=== PATIENT | female | born 1980 | race Caucasian/White ===

== ENCOUNTER 2016-02-27 15:41 | Outpatient (RCR) | payer BC ==
--- OUTSIDE RECORDS SUMMARY | 2015-12-12 11:28 | XMS REPORT | Continuity of Care Document ---
Author Author [facility] Organization [facility] Address Unknown Phone Unavailable Care Team Providers Care Technology Solutions Architect Name Role Phone SHARI CONRAD MD PCP Insurance Providers Payer Name Policy Number Subscriber Name Relationship [facility] [id number] Yury Balderas 19 Self / Same As Patient Advance Directives Directive Response Recorded Date/Time Advance Directives No 07/23/12 11:18pm Health Care Power of Floor Director No 07/23/12 11:18pm Organ Donor No 07/23/12 11:18pm Problems No known problems or medical conditions. Medications Medication Dose Route Sig Days/Qty Instructions Order Date Discontinued Date Status Metoprolol Succinate 25 Mg PO DAILY 12/03/09 07/12/12 Discontinued [Cher] 1 Tab PO DAILY 12/03/09 01/16/10 Discontinued [Aciphex] 12/03/09 12/21/09 Discontinued Ibuprofen 2 Tab PO EVERY 4HRS PRN 12/03/09 02/28/10 Discontinued Cefprozil 1 Each PO TWICE A DAY 20 Qty FOR INFECTION 12/04/09 12/26/09 Discontinued Azithromycin (Zpak) 2 Tab PO DAILY 10 Qty 12/04/09 12/26/09 Discontinued Propoxyphene HCl/Acetaminophen 1 Each PO Q6HR PRN 12/21/09 01/16/10 Discontinued Propylthiouracil 50 Mg PO BEDTIME 12/21/09 01/16/10 Discontinued Propylthiouracil 100 Mg PO TWICE A DAY 12/26/09 03/22/10 Discontinued Warfarin Sodium 6 Mg PO QOD ALTERNATE WITH 7 MG 12/26/09 07/12/12 Discontinued Tramadol HCl 50 Mg PO EVERY 6 HOURS PRN 12/26/09 01/16/10 Discontinued Aspirin 325 Mg PO DAILY 02/28/10 Active Alprazolam 0.125 Mg PO NEEDED 02/28/10 07/12/12 Discontinued Lorazepam 1 Each PO GIVE EVERY 6 HR ON SCHEDULE 10 Qty 02/28/10 Discontinued Ondansetron HCl 1 Tab PO EVERY 4HRS 10 Qty 02/28/10 03/01/10 Discontinued Warfarin Sodium 7 Mg PO EVERY OTHER DAY 02/28/10 07/12/12 Discontinued Prednisone 20 Mg PO DAILY 03/22/10 07/12/12 Discontinued Amlodipine Besylate (Norvasc 5 Mg) 5 Mg PO DAILY 03/22/10 07/12/12 Discontinued Pantoprazole Sodium 03/22/10 07/12/12 Discontinued Calcium Acetate 667 Mg PO THREE TIMES A DAY 03/22/10 07/12/12 Discontinued Ondansetron HCl 4 Mg PO EVERY 4HRS 5 Qty 03/23/10 07/12/12 Discontinued Levothyroxine Sodium 1 Each PO DAILY 07/12/12 Active Cholecalciferol (Vitamin D3) 2,000 Unit PO 07/12/12 Active Warfarin Sodium 10 Mg PO DAILY@1800 30 Qty 07/17/12 Active Alprazolam 1 Each PO BEDTIME 07/23/12 Active Social History Social History Problem Response Recorded Date/Time Alcohol Use Denies Use 07/23/2012 11:18pm Recreational Drug Use No 07/23/2012 11:18pm Recent Foreign Travel N [place] 01/06/2014 3:21pm Hospital Discharge Instructions No hospital discharge instructions. Plan of Care No plan of care. Functional Status No functional status results. Allergies, Adverse Reactions, Alerts Allergen Type Severity Reaction Status Last Updated Sulfa (Sulfonamide Antibiotics) ([id number]) Allergy Unknown Active 30/12 Codeine Allergy Unknown Active 12/03/09 doxycycline Allergy Unknown Active 12/21/09 Immunizations No immunization records. Vital Signs No known vital signs results. Results Laboratory Results Test Name Result Units Flags Reference Collection Date/Time Result Date/ Time Comments White Blood Count 6.2 10^3/uL 4.3-11.0 11/09/2013 11:3711/09/2013 12 :31pm Red Blood Count 4.65 10^6/uL 4.35-5.85 11/09/2013 11:3711/09/2013 12 :31pm Hemoglobin 10.7 G/DL L 11.5-16.0 11/09/2013 11:3711/09/2013 12:31pm Hematocrit 34 % L 35-52 11/09/2013 11:3711/09/2013 12:31pm Mean Corpuscular Volume 73 FL L 80-99 11/09/2013 11:3711/09/2013 12: 31pm Mean Corpuscular Hemoglobin 23 PG L 25-34 11/09/2013 11:3711/09/2013 12:31pm Mean Corpuscular Hemoglobin Concent 32 G/DL 32-36 11/09/2013 11:37 12:31pm Red Cell Distribution Width 16.7 % H 10.0-14.5 11/09/2013 11:372013 12:31pm Platelet Count 329 10^3/uL 130-400 11/09/2013 11:3711/09/2013 12: 31pm Mean Platelet Volume 9.7 FL 7.4-10.4 11/09/2013 11:3711/09/2013 12: 31pm Neutrophils (%) (Auto) 77 % H 42-75 11/09/2013 11:3711/09/2013 12: 31pm Lymphocytes (%) (Auto) 16 % 12-44 11/09/2013 11:3711/09/2013 12: 31pm Monocytes (%) (Auto) 6 % 0-12 11/09/2013 11:3711/09/2013 12:31pm Eosinophils (%) (Auto) 1 % 0-10 11/09/2013 11:3711/09/2013 12:31pm Basophils (%) (Auto) 1 % 0-10 11/09/2013 11:3711/09/2013 12:31pm Neutrophils # (Auto) 4.8 X 10^3 1.8-7.8 11/09/2013 11:3711/09/2013 12:31pm Lymphocytes # (Auto) 1.0 X 10^3 1.0-4.0 11/09/2013 11:37am 11/09/2013 12:31pm Monocytes # (Auto) 0.4 X 10^3 0.0-1.0 11/09/2013 11:37am 11/09/2013 12: 31pm Eosinophils # (Auto) 0.1 10^3/uL 0.0-0.3 11/09/2013 11:37am 11/09/2013 12:31pm Basophils # (Auto) 0.0 10^3/uL 0.0-0.1 11/09/2013 11:37am 11/09/2013 12 :31pm Prothrombin Time 19.1 SEC H 12.2-14.7 01/27/2014 11:07am 01/27/2014 11: 31am INR Comment 1.7 H 0.8-1.4 01/27/2014 11:07am 01/27/2014 11:31am INTERPRETIVE DATA SUGGESTED THERAPEUTIC RANGE FOR INR'S: VENOUS THROMBOSIS, PULMONARY EMBOLISM, OR PREVENTION OF SYSTEMIC EMBOLISM (EG. IN ATRIAL FIBRILLATION): 2.0 - 3.0 MECHANICAL PROSTHETIC HEART VALVES: 2.5 - 3.5* *NOTE: INR'S UP TO 4.5 MAY BE NECESSARY IN SELECTED GROUPS OF HIGH RISK PATIENTS. [employer] [place] CONSENSUS CONFERENCE ON ANTITHROMBOTIC THERAPY (2000). Sodium Level 142 MMOL/L 135-145 11/09/2013 11:3711/09/2013 12:19pm Potassium Level 4.3 MMOL/L 3.6-5.0 11/09/2013 11:37am 11/09/2013 12: 19pm Chloride Level 110 MMOL/L H 98-107 11/09/2013 11:3711/09/2013 12:19pm Carbon Dioxide Level 23 MMOL/L 21-32 11/09/2013 11:37am 11/09/2013 12: 19pm Blood Urea Nitrogen 12 MG/DL 7-18 11/09/2013 11:3711/09/2013 12: 19pm Creatinine 0.91 MG/DL 0.60-1.30 11/09/2013 11:37am 11/09/2013 12:19pm BUN/Creatinine Ratio 13 11/09/2013 11:37am 11/09/2013 12:19pm Estimat Glomerular Filtration Rate > 60 11/09/2013 11:37am 2013 12:19pm GFR INTERPRETIVE DATA UNITS FOR ESTIMATED GFR (eGFR): mL/min/1.73 M2 REFERENCE RANGE FOR ESTIMATED GFR (eGFR) eGFR NORMAL eGFR >60 MODERATELY DECREASED eGFR 30-59 SEVERLY DECREASED eGFR 15-29 KIDNEY FAILURE <15 (OR DIALYSIS) Glucose Level 94 MG/DL 70-105 11/09/2013 11:37am 11/09/2013 12:19pm Calcium Level 9.4 MG/DL 8.5-10.1 11/09/2013 11:37am 11/09/2013 12:19pm Total Bilirubin 0.3 MG/DL 0.1-1.0 11/09/2013 11:37am 11/09/2013 12: 19pm Alkaline Phosphatase 63 U/L 40-136 11/09/2013 11:37am 11/09/2013 12: 19pm Aspartate Amino Transf (AST/SGOT) 19 U/L 5-34 11/09/2013 11:37am 2013 12:19pm Alanine Aminotransferase (ALT/SGPT) 11 U/L 0-55 11/09/2013 11:37am 04/2013 12:19pm Total Protein 7.4 G/DL 6.4-8.2 11/09/2013 11:37am 11/09/2013 12:19pm Albumin 4.2 G/DL 3.2-4.5 11/09/2013 11:37am 11/09/2013 12:19pm Ferritin 16 NG/ML 15-150 12/02/2013 11:05am 12/03/2013 7:24am Procedures No known history of procedures. Encounters Encounter Location Date/Time Discharged Recurring Via [facility] 01/27/14 10:58am
[2015-12-12 12:42] LABS: INR 3.1 (0.8-1.4); PROTHROMBIN TIME PATIENT 31.6 SEC (12.2-14.7)
[2015-12-26 12:25] LABS: PROTHROMBIN TIME PATIENT 31.1 SEC (12.2-14.7)
[2016-01-09 11:50] LABS: INR 2.2 (0.8-1.4); PROTHROMBIN TIME PATIENT 24.3 SEC (12.2-14.7)
[2016-01-23 14:09] LABS: INR 2.8 (0.8-1.4); PROTHROMBIN TIME PATIENT 29.2 SEC (12.2-14.7)
[~2016-02-27 15:41] MED LIST: ACIPHEX; ALPR.25T PO; ALPR0.2550 PO; AMLO5TAB2 PO; ASP81CT PO; AZIT-21 PO; CALC667C PO; CEFP500T4 PO; CHOL200035 PO; IBUP-15 PO; LEVO137T24 PO; LORA-794 PO; MTP25TSR PO; NF-XOP-HFA IH; NF-XOP-HFA INH; ONDAN4ODT PO; ONDN4T PO; PANT40TA; PRD20T PO; PROP1TAB77 PO; PTU50T PO; TRM50T PO; WRF10T PO; WRF5T PO; YAZ PO
[2016-02-27 16:49] LABS: INR 2.6 (0.8-1.4); PROTHROMBIN TIME PATIENT 27.9 SEC (12.2-14.7)
== END 2016-03-11 | disposition home or self-care (01) ==
LOC: ONC 15:41
PROVIDERS: ATTEND Internal Medicine Hematology & Oncology
DX: I82.91 Chronic embolism and thrombosis of unspecified vein (principal); I27.82 Chronic pulmonary embolism; D68.59 Other primary thrombophilia; N18.3 Chronic kidney disease, stage 3 (moderate); E05.90 Thyrotoxicosis, unspecified without thyrotoxic crisis or storm; Z79.01 Long term (current) use of anticoagulants; Z79.899 Other long term (current) drug therapy
CPT/HCPCS: 36415; 85610

== ENCOUNTER 2016-05-23 11:28 | Outpatient (RCR) | payer BC ==
--- OUTSIDE RECORDS SUMMARY | 2016-03-15 11:21 | XMS REPORT | Continuity of Care Document ---
Author Author [facility] Organization [facility] Address Unknown Phone Unavailable Care Team Providers Care [employer] Operations Specialist Name Role Phone SHARI CONRAD MD PCP Insurance Providers Payer Name Policy Number Subscriber Name Relationship [facility] [id number] Yury Balderas 19 Self / Same As Patient Advance Directives Directive Response Recorded Date/Time Advance Directives No 07/23/12 11:18pm Health Care Power of Regulatory Affairs Analyst No 07/23/12 11:18pm Organ Donor No 07/23/12 [...] Reaction Status Last Updated Sulfa (Sulfonamide Antibiotics) ([id number]) Allergy Unknown Active 30/12 Codeine Allergy Unknown [...] SELECTED GROUPS OF HIGH RISK PATIENTS. [employer] CONSENSUS CONFERENCE ON [...] Encounters Encounter Location Date/Time Discharged Recurring Via [facility] 01/27/14 10:58am
[2016-03-15 11:57] LABS: INR 2.5 (0.8-1.4); PROTHROMBIN TIME PATIENT 26.4 SEC (12.2-14.7)
[2016-04-04 14:06] LABS: PROTHROMBIN TIME PATIENT 22.7 SEC (12.2-14.7)
[2016-04-18 12:36] LABS: INR 2.9 (0.8-1.4); PROTHROMBIN TIME PATIENT 30.3 SEC (12.2-14.7)
[2016-05-02 12:38] LABS: INR 2.8 (0.8-1.4); PROTHROMBIN TIME PATIENT 29.4 SEC (12.2-14.7)
[2016-05-23 12:07] LABS: INR 2.6 (0.8-1.4); PROTHROMBIN TIME PATIENT 27.4 SEC (12.2-14.7)
== END 2016-06-13 | disposition home or self-care (01) ==
LOC: ONC 11:28
PROVIDERS: ATTEND Internal Medicine Hematology & Oncology
DX: I82.91 Chronic embolism and thrombosis of unspecified vein (principal); I27.82 Chronic pulmonary embolism; D68.59 Other primary thrombophilia; N18.3 Chronic kidney disease, stage 3 (moderate); E05.90 Thyrotoxicosis, unspecified without thyrotoxic crisis or storm; Z79.01 Long term (current) use of anticoagulants; Z79.899 Other long term (current) drug therapy
CPT/HCPCS: 36415; 85610

== ENCOUNTER → 2016-07-18 | Outpatient (CLI) | payer BC ==
[2016-07-18 12:32] LABS: THYROID STIMULATING HORMONE 1.67 UIU/ML (0.35-4.94)
== END ==
LOC: LAB 11:21
PROVIDERS: ATTEND Internal Medicine Endocrinology, Diabetes & Metabolism
DX: E05.00 Thyrotoxicosis with diffuse goiter without thyrotoxic crisis or storm (principal)
CPT/HCPCS: 36415; 84439; 84443

== ENCOUNTER 2016-09-16 12:45 | Outpatient (RCR) | payer BC ==
[2016-06-20 12:38] LABS: INR 2.3 (0.8-1.4); PROTHROMBIN TIME PATIENT 24.8 SEC (12.2-14.7)
[2016-07-18 12:03] LABS: INR 1.9 (0.8-1.4); PROTHROMBIN TIME PATIENT 21.4 SEC (12.2-14.7)
[2016-08-02 15:50] LABS: INR 3.5 (0.8-1.4); PROTHROMBIN TIME PATIENT 34.9 SEC (12.2-14.7)
[2016-08-21 11:55] LABS: INR 2.5 (0.8-1.4); PROTHROMBIN TIME PATIENT 26.7 SEC (12.2-14.7)
[2016-09-11 13:07] LABS: BASOPHILS % (AUTO) 1 % (0-10); EOSINOPHILS # (AUTO) 0.1 10^3/uL (0.0-0.3); EOSINOPHILS % (AUTO) 2 % (0-10); LYMPHOCYTES # (AUTO) 1.5 X 10^3 (1.0-4.0); LYMPHOCYTES % (AUTO) 25 % (12-44); MEAN CORPUSCULAR HEMOGLOBIN 28 PG (25-34); MEAN CORPUSCULAR HGB CONC 33 G/DL (32-36); MEAN CORPUSCULAR VOLUME 85 FL (80-99); MEAN PLATELET VOLUME 10.3 FL (7.4-10.4); MONOCYTES # (AUTO) 0.3 X 10^3 (0.0-1.0); MONOCYTES % (AUTO) 5 % (0-12); NEUTROPHILS # (AUTO) 3.9 X 10^3 (1.8-7.8); NEUTROPHILS % (AUTO) 67 % (42-75); PLATELET COUNT 272 10^3/uL (130-400); RED BLOOD COUNT 4.72 10^6/uL (4.35-5.85); RED CELL DISTRIBUTION WIDTH 12.7 % (10.0-14.5); WHITE BLOOD COUNT 5.8 10^3/uL (4.3-11.0)
[2016-09-11 13:31] LABS: INR 2.8 (0.8-1.4); PROTHROMBIN TIME PATIENT 29.4 SEC (12.2-14.7)
[2016-09-11 13:41] LABS: ALANINE AMINOTRANSFERASE 12 U/L (0-55); ANION GAP 8 MMOL/L (5-14); ASPARTATE AMINO TRANSFERASE 17 U/L (5-34); BILIRUBIN,TOTAL 0.3 MG/DL (0.1-1.0); BLOOD UREA NITROGEN 13 MG/DL (7-18); BUN/CREATININE RATIO 16; CALCIUM 8.8 MG/DL (8.5-10.1); CARBON DIOXIDE 25 MMOL/L (21-32); CHLORIDE 109 MMOL/L (98-107); CREATININE SERUM 0.82 MG/DL (0.60-1.30); GFR ESTIMATED > 60; GLUCOSE 87 MG/DL (70-105); POTASSIUM 4.6 MMOL/L (3.6-5.0); SODIUM 142 MMOL/L (135-145); TOTAL PROTEIN 6.9 GM/DL (6.4-8.2)
== END 2016-09-18 | disposition home or self-care (01) ==
LOC: ONC 12:45
PROVIDERS: ATTEND Internal Medicine Hematology & Oncology
DX: I82.91 Chronic embolism and thrombosis of unspecified vein (principal); I27.82 Chronic pulmonary embolism; D68.59 Other primary thrombophilia; N18.3 Chronic kidney disease, stage 3 (moderate); E05.90 Thyrotoxicosis, unspecified without thyrotoxic crisis or storm; Z79.01 Long term (current) use of anticoagulants; Z79.899 Other long term (current) drug therapy
CPT/HCPCS: 36415; 80053; 82728; 85025; 85610; 99213

== ENCOUNTER → 2016-10-03 | Outpatient (CLI) | payer BC ==
[2016-10-03 12:07] LABS: THYROID STIMULATING HORMONE 1.63 UIU/ML (0.35-4.94)
== END ==
LOC: LAB 09-11 12:29
PROVIDERS: ATTEND Internal Medicine Endocrinology, Diabetes & Metabolism
DX: E05.00 Thyrotoxicosis with diffuse goiter without thyrotoxic crisis or storm (principal)
CPT/HCPCS: 36415; 84439; 84443

== ENCOUNTER 2016-11-21 11:03 | Outpatient (RCR) | payer BC ==
[2016-09-25 11:43] LABS: PROTHROMBIN TIME PATIENT 30.8 SEC (12.2-14.7)
[2016-10-24 14:07] LABS: INR 2.4 (0.8-1.4); PROTHROMBIN TIME PATIENT 26.4 SEC (12.2-14.7)
[2016-11-21 11:41] LABS: INR 2.4 (0.8-1.4); PROTHROMBIN TIME PATIENT 25.7 SEC (12.2-14.7)
== END 2016-12-07 | disposition home or self-care (01) ==
LOC: ONC 11:03
PROVIDERS: ATTEND Internal Medicine Hematology & Oncology
DX: I82.91 Chronic embolism and thrombosis of unspecified vein (principal); I27.82 Chronic pulmonary embolism; D68.59 Other primary thrombophilia; N18.3 Chronic kidney disease, stage 3 (moderate); E05.90 Thyrotoxicosis, unspecified without thyrotoxic crisis or storm; Z79.01 Long term (current) use of anticoagulants; Z79.899 Other long term (current) drug therapy
CPT/HCPCS: 36415; 85610

== ENCOUNTER 2017-03-18 10:53 | Outpatient (RCR) | payer BC ==
[2016-12-20 11:56] LABS: INR 2.2 (0.8-1.4); PROTHROMBIN TIME PATIENT 24.4 SEC (12.2-14.7)
[2017-01-03 09:04] LABS: INR 2.8 (0.8-1.4); PROTHROMBIN TIME PATIENT 29.5 SEC (12.2-14.7)
[2017-01-10 16:42] LABS: INR 2.5 (0.8-1.4); PROTHROMBIN TIME PATIENT 27.2 SEC (12.2-14.7)
[2017-01-21 10:17] LABS: INR 2.3 (0.8-1.4); PROTHROMBIN TIME PATIENT 25.2 SEC (12.2-14.7)
[2017-02-04 12:32] LABS: INR 2.5 (0.8-1.4)
[2017-02-18 14:19] LABS: INR 2.7 (0.8-1.4); PROTHROMBIN TIME PATIENT 28.7 SEC (12.2-14.7)
[2017-03-18 11:17] LABS: INR 2.1 (0.8-1.4); PROTHROMBIN TIME PATIENT 23.8 SEC (12.2-14.7)
== END 2017-03-20 | disposition home or self-care (01) ==
LOC: ONC 10:53
PROVIDERS: ATTEND Internal Medicine Hematology & Oncology
DX: I82.91 Chronic embolism and thrombosis of unspecified vein (principal); I27.82 Chronic pulmonary embolism; D68.59 Other primary thrombophilia; N18.3 Chronic kidney disease, stage 3 (moderate); E05.90 Thyrotoxicosis, unspecified without thyrotoxic crisis or storm; Z79.01 Long term (current) use of anticoagulants; Z79.899 Other long term (current) drug therapy
CPT/HCPCS: 36415; 85610

== ENCOUNTER → 2017-05-05 | Outpatient (CLI) | payer BC ==
[2017-05-05 12:15] LABS: FREE T4 (FREE THYROXINE) 1.47 NG/DL (0.70-1.48)
== END ==
LOC: LAB 11:22
PROVIDERS: ATTEND Internal Medicine Endocrinology, Diabetes & Metabolism
DX: E03.9 Hypothyroidism, unspecified (principal)
CPT/HCPCS: 36415; 84439; 84443

== ENCOUNTER 2017-06-16 11:20 | Outpatient (RCR) | payer BC ==
[2017-03-31 09:09] LABS: INR 2.3 (0.8-1.4)
[2017-04-28 16:05] LABS: INR 1.9 (0.8-1.4); PROTHROMBIN TIME PATIENT 21.4 SEC (12.2-14.7)
[2017-05-05 11:49] LABS: INR 2.8 (0.8-1.4); PROTHROMBIN TIME PATIENT 29.5 SEC (12.2-14.7)
[2017-05-19 12:55] LABS: INR 2.6 (0.8-1.4)
[2017-06-16 12:14] LABS: INR 2.3 (0.8-1.4); PROTHROMBIN TIME PATIENT 25.6 SEC (12.2-14.7)
== END 2017-06-29 | disposition home or self-care (01) ==
LOC: ONC 11:20
PROVIDERS: ATTEND Internal Medicine Hematology & Oncology
DX: I82.91 Chronic embolism and thrombosis of unspecified vein (principal); I27.82 Chronic pulmonary embolism; D68.59 Other primary thrombophilia; N18.3 Chronic kidney disease, stage 3 (moderate); E05.90 Thyrotoxicosis, unspecified without thyrotoxic crisis or storm; Z79.01 Long term (current) use of anticoagulants; Z79.899 Other long term (current) drug therapy
CPT/HCPCS: 36415; 85610

== ENCOUNTER → 2017-09-09 | Outpatient (CLI) | payer BC ==
[2017-09-09 13:09] LABS: FREE T4 (FREE THYROXINE) 1.59 NG/DL (0.70-1.48)
== END ==
LOC: LAB 11:30
PROVIDERS: ATTEND Internal Medicine Endocrinology, Diabetes & Metabolism
DX: E03.9 Hypothyroidism, unspecified (principal)
CPT/HCPCS: 84439; 84443

== ENCOUNTER → 2017-09-09 | Outpatient (CLI) | payer BC ==
[2017-09-09 12:04] LABS: BASOPHILS % (AUTO) 0 % (0-10); EOSINOPHILS # (AUTO) 0.1 10^3/uL (0.0-0.3); EOSINOPHILS % (AUTO) 1 % (0-10); HEMATOCRIT 40 % (35-52); HEMOGLOBIN 13.5 G/DL (11.5-16.0); LYMPHOCYTES # (AUTO) 1.3 X 10^3 (1.0-4.0); LYMPHOCYTES % (AUTO) 23 % (12-44); MEAN CORPUSCULAR HEMOGLOBIN 29 PG (25-34); MEAN CORPUSCULAR HGB CONC 34 G/DL (32-36); MEAN CORPUSCULAR VOLUME 85 FL (80-99); MEAN PLATELET VOLUME 10.6 FL (7.4-10.4); MONOCYTES # (AUTO) 0.3 X 10^3 (0.0-1.0); MONOCYTES % (AUTO) 5 % (0-12); NEUTROPHILS # (AUTO) 3.8 X 10^3 (1.8-7.8); NEUTROPHILS % (AUTO) 70 % (42-75); PLATELET COUNT 266 10^3/uL (130-400); RED BLOOD COUNT 4.71 10^6/uL (4.35-5.85); RED CELL DISTRIBUTION WIDTH 13.4 % (10.0-14.5); WHITE BLOOD COUNT 5.4 10^3/uL (4.3-11.0)
[2017-09-09 12:07] LABS: BILIRUBIN,URINE NEGATIVE (NEGATIVE); CLARITY,URINE CLEAR; COLOR,URINE YELLOW; GLUCOSE, URINE (UA) NEGATIVE (NEGATIVE); KETONES,URINE NEGATIVE (NEGATIVE); LEUKOCYTE ESTERASE ,URINE NEGATIVE (NEGATIVE); NITRITE,URINE NEGATIVE (NEGATIVE); PH,URINE 7 (5-9); PROTEIN,URINE NEGATIVE (NEGATIVE); UROBILINOGEN,URINE NORMAL (NORMAL)
[2017-09-09 12:22] LABS: BACTERIA,URINE NEGATIVE /HPF; SQUAMOUS EPITHELIAL CELL,UR 0-2 /HPF
[2017-09-09 12:31] LABS: URINE CREATININE FOR RATIO 92 MG/DL (30-125); URINE PROTEIN FOR RATIO ONLY < 6 MG/DL (6-12)
[2017-09-09 12:34] LABS: ALBUMIN 4.1 GM/DL (3.2-4.5); BUN/CREATININE RATIO 17; CARBON DIOXIDE 21 MMOL/L (21-32); CHLORIDE 111 MMOL/L (98-107); CREATININE SERUM 0.86 MG/DL (0.60-1.30); GFR ESTIMATED > 60; GLUCOSE 85 MG/DL (70-105); PHOSPHORUS 2.3 MG/DL (2.3-4.7); POTASSIUM 4.3 MMOL/L (3.6-5.0); SODIUM 139 MMOL/L (135-145)
== END ==
LOC: LAB 11:33
PROVIDERS: ATTEND Internal Medicine Nephrology
DX: N18.2 Chronic kidney disease, stage 2 (mild) (principal)
CPT/HCPCS: 80069; 81000; 82570; 84100; 84156

== ENCOUNTER 2017-10-03 11:13 | Outpatient (RCR) | payer BC ==
[2017-07-14 12:37] LABS: INR 2.5 (0.8-1.4); PROTHROMBIN TIME PATIENT 26.6 SEC (12.2-14.7)
[2017-08-07 15:45] LABS: INR 2.9 (0.8-1.4); PROTHROMBIN TIME PATIENT 30.5 SEC (12.2-14.7)
[2017-08-20 16:19] LABS: INR 2.7 (0.8-1.4); PROTHROMBIN TIME PATIENT 28.6 SEC (12.2-14.7)
[2017-09-09 12:02] LABS: BASOPHILS % (AUTO) 0 % (0-10); EOSINOPHILS # (AUTO) 0.1 10^3/uL (0.0-0.3); EOSINOPHILS % (AUTO) 1 % (0-10); HEMATOCRIT 40 % (35-52); HEMOGLOBIN 13.5 G/DL (11.5-16.0); LYMPHOCYTES # (AUTO) 1.3 X 10^3 (1.0-4.0); LYMPHOCYTES % (AUTO) 23 % (12-44); MEAN CORPUSCULAR HEMOGLOBIN 29 PG (25-34); MEAN CORPUSCULAR HGB CONC 34 G/DL (32-36); MEAN CORPUSCULAR VOLUME 85 FL (80-99); MEAN PLATELET VOLUME 10.6 FL (7.4-10.4); MONOCYTES # (AUTO) 0.3 X 10^3 (0.0-1.0); MONOCYTES % (AUTO) 5 % (0-12); NEUTROPHILS # (AUTO) 3.8 X 10^3 (1.8-7.8); NEUTROPHILS % (AUTO) 70 % (42-75); PLATELET COUNT 266 10^3/uL (130-400); RED BLOOD COUNT 4.71 10^6/uL (4.35-5.85); RED CELL DISTRIBUTION WIDTH 13.4 % (10.0-14.5); WHITE BLOOD COUNT 5.4 10^3/uL (4.3-11.0)
[2017-09-09 12:14] LABS: INR 2.1 (0.8-1.4)
[2017-09-09 12:21] LABS: ALANINE AMINOTRANSFERASE 12 U/L (0-55); ALBUMIN 4.1 GM/DL (3.2-4.5); ALKALINE PHOSPHATASE 61 U/L (40-136); BILIRUBIN,TOTAL 0.4 MG/DL (0.1-1.0); BUN/CREATININE RATIO 17; CARBON DIOXIDE 23 MMOL/L (21-32); CHLORIDE 111 MMOL/L (98-107); CREATININE SERUM 0.86 MG/DL (0.60-1.30); GFR ESTIMATED > 60; GLUCOSE 85 MG/DL (70-105); POTASSIUM 4.3 MMOL/L (3.6-5.0); SODIUM 139 MMOL/L (135-145); TOTAL PROTEIN 6.6 GM/DL (6.4-8.2)
[2017-09-22 13:23] LABS: INR 3.1 (0.8-1.4); PROTHROMBIN TIME PATIENT 32.1 SEC (12.2-14.7)
[2017-10-03 11:46] LABS: INR 2.1 (0.8-1.4); PROTHROMBIN TIME PATIENT 23.7 SEC (12.2-14.7)
== END 2017-10-12 | disposition home or self-care (01) ==
LOC: ONC 11:13
PROVIDERS: ATTEND Internal Medicine Hematology & Oncology
DX: I82.91 Chronic embolism and thrombosis of unspecified vein (principal); I27.82 Chronic pulmonary embolism; D68.59 Other primary thrombophilia; N18.3 Chronic kidney disease, stage 3 (moderate); E05.90 Thyrotoxicosis, unspecified without thyrotoxic crisis or storm; Z79.01 Long term (current) use of anticoagulants; Z79.899 Other long term (current) drug therapy
CPT/HCPCS: 36415; 80053; 82728; 85025; 85610; 99213

== ENCOUNTER 2017-11-12 08:33 | Outpatient (RCR) | payer BC ==
[2017-10-20 16:14] LABS: INR 2.7 (0.8-1.4); PROTHROMBIN TIME PATIENT 28.6 SEC (12.2-14.7)
[2017-11-12 09:08] LABS: INR 2.5 (0.8-1.4); PROTHROMBIN TIME PATIENT 27.1 SEC (12.2-14.7)
[2017-12-11 11:49] LABS: INR 2.4 (0.8-1.4); PROTHROMBIN TIME PATIENT 26.3 SEC (12.2-14.7)
== END 2017-12-11 10:57 | disposition home or self-care (01) ==
LOC: ONC 08:33
PROVIDERS: ATTEND Internal Medicine Hematology & Oncology
DX: I82.91 Chronic embolism and thrombosis of unspecified vein (principal); I27.82 Chronic pulmonary embolism; D68.59 Other primary thrombophilia; N18.3 Chronic kidney disease, stage 3 (moderate); E05.90 Thyrotoxicosis, unspecified without thyrotoxic crisis or storm; Z79.01 Long term (current) use of anticoagulants; Z79.899 Other long term (current) drug therapy
CPT/HCPCS: 36415; 85610

== ENCOUNTER → 2018-01-08 | Outpatient (CLI) | payer BC ==
[2018-01-08 13:28] LABS: FREE T4 (FREE THYROXINE) 1.53 NG/DL (0.70-1.48)
== END ==
LOC: LAB 12:38
PROVIDERS: ATTEND Internal Medicine Endocrinology, Diabetes & Metabolism
DX: E03.9 Hypothyroidism, unspecified (principal)
CPT/HCPCS: 36415; 84439; 84443

== ENCOUNTER → 2018-03-11 | Outpatient (RCR) | payer BC ==
[2018-01-08 12:58] LABS: PROTHROMBIN TIME PATIENT 31.3 SEC (12.2-14.7)
[2018-01-12 08:38] LABS: INR 2.7 (0.8-1.4); PROTHROMBIN TIME PATIENT 28.4 SEC (12.2-14.7)
[2018-01-27 11:43] LABS: INR 2.5 (0.8-1.4); PROTHROMBIN TIME PATIENT 27.3 SEC (12.2-14.7)
[2018-02-17 10:40] LABS: INR 4.6 (0.8-1.4); PROTHROMBIN TIME PATIENT 43.6 SEC (12.2-14.7)
[2018-02-26 14:23] LABS: INR 1.9 (0.8-1.4); PROTHROMBIN TIME PATIENT 21.4 SEC (12.2-14.7)
[2018-03-05 15:01] LABS: INR 1.6 (0.8-1.4); PROTHROMBIN TIME PATIENT 19.2 SEC (12.2-14.7)
[2018-03-11 11:29] LABS: INR 1.9 (0.8-1.4); PROTHROMBIN TIME PATIENT 21.7 SEC (12.2-14.7)
== END | disposition home or self-care (01) ==
LOC: ONC 12-11 10:59
PROVIDERS: ATTEND Internal Medicine Hematology & Oncology
DX: I82.91 Chronic embolism and thrombosis of unspecified vein (principal); I27.82 Chronic pulmonary embolism; D68.59 Other primary thrombophilia; N18.3 Chronic kidney disease, stage 3 (moderate); E05.90 Thyrotoxicosis, unspecified without thyrotoxic crisis or storm; Z79.01 Long term (current) use of anticoagulants; Z79.899 Other long term (current) drug therapy
CPT/HCPCS: 36415; 85610

== ENCOUNTER → 2018-05-28 | Outpatient (CLI) | payer BC ==
--- NOTE | 2018-05-28 14:02 | Diagnostic Imaging Report ---
PROCEDURE: US Thyroid. TECHNIQUE: Multiple real-time grayscale images were obtained of the thyroid in various projections. INDICATION: Hypothyroidism. Right lobe of thyroid measures 3.9 x 1.3 x 1.2 cm and the left lobe measures 2.5 x 0.8 x 0.8 cm. There is a questionable nodule in the lower pole left lobe of thyroid approximately 8 mm x 3 mm x 9 mm in size. No other thyroid masses are detected. Right lobe is unremarkable IMPRESSION: Subcentimeter left lobe thyroid nodule. The study is otherwise unremarkable. Dictated by: Dictated on workstation # [id number]
== END ==
LOC: RAD 13:00
PROVIDERS: ATTEND Nurse Practitioner Family
DX: E04.1 Nontoxic single thyroid nodule (principal)
CPT/HCPCS: 76536

== ENCOUNTER 2018-06-03 15:04 | Outpatient (RCR) | payer BC ==
[2018-03-18 12:17] LABS: INR 1.9 (0.8-1.4); PROTHROMBIN TIME PATIENT 22.2 SEC (12.2-14.7)
[2018-03-26 11:13] LABS: INR 1.9 (0.8-1.4); PROTHROMBIN TIME PATIENT 21.5 SEC (12.2-14.7)
[2018-04-01 11:32] LABS: INR 2.5 (0.8-1.4); PROTHROMBIN TIME PATIENT 26.8 SEC (12.2-14.7)
[2018-04-15 16:13] LABS: INR 2.2 (0.8-1.4); PROTHROMBIN TIME PATIENT 24.2 SEC (12.2-14.7)
[2018-04-29 14:27] LABS: INR 3.1 (0.8-1.4); PROTHROMBIN TIME PATIENT 32.2 SEC (12.2-14.7)
[2018-05-06 12:05] LABS: INR 2.9 (0.8-1.4); PROTHROMBIN TIME PATIENT 30.9 SEC (12.2-14.7)
[2018-05-13 11:30] LABS: INR 2.7 (0.8-1.4); PROTHROMBIN TIME PATIENT 29.1 SEC (12.2-14.7)
[2018-05-19 14:02] LABS: INR 2.4 (0.8-1.4); PROTHROMBIN TIME PATIENT 26.7 SEC (12.2-14.7)
[2018-06-03 15:35] LABS: PROTHROMBIN TIME PATIENT 23.7 SEC (12.2-14.7)
== END 2018-06-16 | disposition home or self-care (01) ==
LOC: ONC 15:04
PROVIDERS: ATTEND Internal Medicine Hematology & Oncology
DX: I82.91 Chronic embolism and thrombosis of unspecified vein (principal); I27.82 Chronic pulmonary embolism; D68.59 Other primary thrombophilia; N18.3 Chronic kidney disease, stage 3 (moderate); E05.90 Thyrotoxicosis, unspecified without thyrotoxic crisis or storm; Z79.01 Long term (current) use of anticoagulants; Z79.899 Other long term (current) drug therapy
CPT/HCPCS: 36415; 85610

== ENCOUNTER 2018-09-03 12:52 | Outpatient (RCR) | payer BC ==
[2018-06-23 16:29] LABS: INR 1.8 (0.8-1.4); PROTHROMBIN TIME PATIENT 21.5 SEC (12.2-14.7)
[2018-06-30 16:24] LABS: INR 2.4 (0.8-1.4); PROTHROMBIN TIME PATIENT 26.8 SEC (12.2-14.7)
[2018-07-07 16:56] LABS: INR 2.6 (0.8-1.4); PROTHROMBIN TIME PATIENT 28.7 SEC (12.2-14.7)
[2018-07-21 12:00] LABS: INR 1.7 (0.8-1.4); PROTHROMBIN TIME PATIENT 20.7 SEC (12.2-14.7)
[2018-07-28 11:41] LABS: INR 1.9 (0.8-1.4); PROTHROMBIN TIME PATIENT 22.8 SEC (12.2-14.7)
[2018-08-05 11:11] LABS: PROTHROMBIN TIME PATIENT 23.3 SEC (12.2-14.7)
[2018-08-14 10:26] LABS: INR 1.7 (0.8-1.4); PROTHROMBIN TIME PATIENT 20.8 SEC (12.2-14.7)
[2018-08-20 11:56] LABS: INR 2.2 (0.8-1.4); PROTHROMBIN TIME PATIENT 25.5 SEC (12.2-14.7)
[2018-09-03 13:23] LABS: BASOPHILS % (AUTO) 0 % (0-10); EOSINOPHILS # (AUTO) 0.1 10^3/uL (0.0-0.3); EOSINOPHILS % (AUTO) 1 % (0-10); HEMATOCRIT 40 % (35-52); HEMOGLOBIN 13.1 G/DL (11.5-16.0); LYMPHOCYTES # (AUTO) 1.2 X 10^3 (1.0-4.0); LYMPHOCYTES % (AUTO) 16 % (12-44); MEAN CORPUSCULAR HEMOGLOBIN 28 PG (25-34); MEAN CORPUSCULAR HGB CONC 33 G/DL (32-36); MEAN CORPUSCULAR VOLUME 86 FL (80-99); MEAN PLATELET VOLUME 10.6 FL (7.4-10.4); MONOCYTES # (AUTO) 0.4 X 10^3 (0.0-1.0); MONOCYTES % (AUTO) 5 % (0-12); NEUTROPHILS # (AUTO) 5.7 X 10^3 (1.8-7.8); NEUTROPHILS % (AUTO) 78 % (42-75); PLATELET COUNT 266 10^3/uL (130-400); RED CELL DISTRIBUTION WIDTH 13.9 % (10.0-14.5); WHITE BLOOD COUNT 7.3 10^3/uL (4.3-11.0)
[2018-09-03 13:34] LABS: INR 2.1 (0.8-1.4); PROTHROMBIN TIME PATIENT 24.1 SEC (12.2-14.7)
[2018-09-03 13:41] LABS: ALANINE AMINOTRANSFERASE 13 U/L (0-55); ALBUMIN 4.1 GM/DL (3.2-4.5); ALKALINE PHOSPHATASE 67 U/L (40-136); BILIRUBIN,TOTAL 0.3 MG/DL (0.1-1.0); BUN/CREATININE RATIO 24; CARBON DIOXIDE 24 MMOL/L (21-32); CHLORIDE 106 MMOL/L (98-107); CREATININE SERUM 0.85 MG/DL (0.60-1.30); GFR ESTIMATED > 60; GLUCOSE 92 MG/DL (70-105); POTASSIUM 4.5 MMOL/L (3.6-5.0); SODIUM 136 MMOL/L (135-145); TOTAL PROTEIN 6.9 GM/DL (6.4-8.2)
== END 2018-09-21 | disposition home or self-care (01) ==
LOC: ONC 12:52
PROVIDERS: ATTEND Internal Medicine Hematology & Oncology
DX: I82.91 Chronic embolism and thrombosis of unspecified vein (principal); I27.82 Chronic pulmonary embolism; D68.59 Other primary thrombophilia; N18.3 Chronic kidney disease, stage 3 (moderate); E05.90 Thyrotoxicosis, unspecified without thyrotoxic crisis or storm; Z79.01 Long term (current) use of anticoagulants; Z79.899 Other long term (current) drug therapy
CPT/HCPCS: 36415; 80053; 82728; 85025; 85610; 99213

== ENCOUNTER → 2018-09-03 | Outpatient (CLI) | payer BC ==
[2018-09-03 13:34] LABS: BILIRUBIN,URINE NEGATIVE (NEGATIVE); CLARITY,URINE CLEAR; COLOR,URINE YELLOW; GLUCOSE, URINE (UA) NEGATIVE (NEGATIVE); KETONES,URINE NEGATIVE (NEGATIVE); LEUKOCYTE ESTERASE ,URINE NEGATIVE (NEGATIVE); NITRITE,URINE NEGATIVE (NEGATIVE); PH,URINE 5 (5-9); PROTEIN,URINE NEGATIVE (NEGATIVE); UROBILINOGEN,URINE NORMAL (NORMAL)
[2018-09-03 13:41] LABS: HEMATOCRIT 40 % (35-52); HEMOGLOBIN 13.1 G/DL (11.5-16.0); MEAN CORPUSCULAR HEMOGLOBIN 28 PG (25-34); MEAN CORPUSCULAR VOLUME 86 FL (80-99); WHITE BLOOD COUNT 7.3 10^3/uL (4.3-11.0)
[2018-09-03 13:41] LABS: BACTERIA,URINE NEGATIVE /HPF; RBC,URINE 0-2 /HPF; SQUAMOUS EPITHELIAL CELL,UR 0-2 /HPF
[2018-09-03 13:42] LABS: BASOPHILS % (AUTO) 0 % (0-10); EOSINOPHILS # (AUTO) 0.1 10^3/uL (0.0-0.3); EOSINOPHILS % (AUTO) 1 % (0-10); LYMPHOCYTES # (AUTO) 1.2 X 10^3 (1.0-4.0); LYMPHOCYTES % (AUTO) 16 % (12-44); MEAN CORPUSCULAR HGB CONC 33 G/DL (32-36); MEAN PLATELET VOLUME 10.6 FL (7.4-10.4); MONOCYTES # (AUTO) 0.4 X 10^3 (0.0-1.0); MONOCYTES % (AUTO) 5 % (0-12); NEUTROPHILS # (AUTO) 5.7 X 10^3 (1.8-7.8); NEUTROPHILS % (AUTO) 78 % (42-75); PLATELET COUNT 266 10^3/uL (130-400); RED CELL DISTRIBUTION WIDTH 13.9 % (10.0-14.5)
[2018-09-03 13:49] LABS: ALBUMIN 4.1 GM/DL (3.2-4.5); BUN/CREATININE RATIO 22; CARBON DIOXIDE 24 MMOL/L (21-32); CHLORIDE 106 MMOL/L (98-107); CREATININE SERUM 0.85 MG/DL (0.60-1.30); GFR ESTIMATED > 60; GLUCOSE 92 MG/DL (70-105); PHOSPHORUS 2.9 MG/DL (2.3-4.7); POTASSIUM 4.5 MMOL/L (3.6-5.0); SODIUM 135 MMOL/L (135-145)
[2018-09-03 13:51] LABS: URINE CREATININE FOR RATIO 40 MG/DL (30-125); URINE PROTEIN FOR RATIO ONLY < 6 MG/DL (6-12)
== END ==
LOC: LAB 10:08
PROVIDERS: ATTEND Internal Medicine Nephrology
DX: E03.9 Hypothyroidism, unspecified (principal)
CPT/HCPCS: 36415; 80069; 81000; 82570; 84156; 85025

== ENCOUNTER → 2018-09-03 | Outpatient (CLI) | payer BC ==
[2018-09-03 14:12] LABS: FREE T4 (FREE THYROXINE) 1.42 NG/DL (0.70-1.48)
== END ==
LOC: LAB 08:50
PROVIDERS: ATTEND Family Medicine
DX: E03.9 Hypothyroidism, unspecified (principal)
CPT/HCPCS: 36415; 84439; 84443

== ENCOUNTER 2018-12-17 11:28 | Outpatient (RCR) | payer BC ==
[2018-09-23 09:28] LABS: PROTHROMBIN TIME PATIENT 23.7 SEC (12.2-14.7)
[2018-10-13 11:21] LABS: INR 2.7 (0.8-1.4); PROTHROMBIN TIME PATIENT 29.8 SEC (12.2-14.7)
[2018-11-12 11:44] LABS: INR 2.3 (0.8-1.4); PROTHROMBIN TIME PATIENT 26.1 SEC (12.2-14.7)
[2018-12-10 16:03] LABS: INR 4.2 (0.8-1.4); PROTHROMBIN TIME PATIENT 42.8 SEC (12.2-14.7)
[2018-12-17 16:27] LABS: INR 2.4 (0.8-1.4)
== END 2018-12-22 | disposition home or self-care (01) ==
LOC: ONC 11:28
PROVIDERS: ATTEND Internal Medicine Hematology & Oncology
DX: I82.91 Chronic embolism and thrombosis of unspecified vein (principal); I27.82 Chronic pulmonary embolism; D68.59 Other primary thrombophilia; N18.3 Chronic kidney disease, stage 3 (moderate); E05.90 Thyrotoxicosis, unspecified without thyrotoxic crisis or storm; Z79.01 Long term (current) use of anticoagulants; Z79.899 Other long term (current) drug therapy
CPT/HCPCS: 36415; 85610

== ENCOUNTER → 2019-02-11 | Outpatient (CLI) | payer BC ==
[2019-02-11 16:54] LABS: FREE T4 (FREE THYROXINE) 1.36 NG/DL (0.70-1.48)
== END ==
LOC: LAB 15:43
PROVIDERS: ATTEND Internal Medicine Endocrinology, Diabetes & Metabolism
DX: Z01.89 Encounter for other specified special examinations (principal)
CPT/HCPCS: 36415; 84439; 84443

== ENCOUNTER 2019-03-11 11:01 | Outpatient (RCR) | payer BC ==
[2018-12-24 11:58] LABS: INR 2.2 (0.8-1.4); PROTHROMBIN TIME PATIENT 25.1 SEC (12.2-14.7)
[2019-01-04 17:07] LABS: INR 2.2 (0.8-1.4); PROTHROMBIN TIME PATIENT 25.2 SEC (12.2-14.7)
[2019-01-20 13:12] LABS: INR 2.7 (0.8-1.4); PROTHROMBIN TIME PATIENT 30.2 SEC (12.2-14.7)
[2019-02-03 13:14] LABS: PROTHROMBIN TIME PATIENT 23.4 SEC (12.2-14.7)
[2019-02-11 16:24] LABS: INR 2.4 (0.8-1.4); PROTHROMBIN TIME PATIENT 27.2 SEC (12.2-14.7)
[2019-02-25 16:17] LABS: INR 2.3 (0.8-1.4)
[2019-03-11 11:40] LABS: INR 2.4 (0.8-1.4)
== END 2019-03-24 | disposition home or self-care (01) ==
LOC: ONC 11:01
PROVIDERS: ATTEND Internal Medicine Hematology & Oncology
DX: R79.1 Abnormal coagulation profile (principal); Z86.718 Personal history of other venous thrombosis and embolism; Z86.711 Personal history of pulmonary embolism; Z79.01 Long term (current) use of anticoagulants; Z79.899 Other long term (current) drug therapy
CPT/HCPCS: 36415; 85610

== ENCOUNTER 2019-06-08 11:32 | Outpatient (RCR) | payer BC ==
[2019-03-31 15:17] LABS: PROTHROMBIN TIME PATIENT 23.4 SEC (12.2-14.7)
[2019-04-07 14:02] LABS: INR 2.3 (0.8-1.4); PROTHROMBIN TIME PATIENT 26.4 SEC (12.2-14.7)
[2019-04-21 15:19] LABS: INR 2.1 (0.8-1.4); PROTHROMBIN TIME PATIENT 24.7 SEC (12.2-14.7)
[2019-05-03 12:00] LABS: INR 3.8 (0.8-1.4); PROTHROMBIN TIME PATIENT 38.8 SEC (12.2-14.7)
[2019-05-11 11:32] LABS: INR 2.5 (0.8-1.4); PROTHROMBIN TIME PATIENT 28.1 SEC (12.2-14.7)
[2019-05-18 11:35] LABS: INR 2.2 (0.8-1.4); PROTHROMBIN TIME PATIENT 25.3 SEC (12.2-14.7)
[2019-05-25 11:46] LABS: INR 2.2 (0.8-1.4); PROTHROMBIN TIME PATIENT 25.5 SEC (12.2-14.7)
[2019-06-08 11:54] LABS: PROTHROMBIN TIME PATIENT 23.2 SEC (12.2-14.7)
== END 2019-06-29 | disposition home or self-care (01) ==
LOC: ONC 11:32
PROVIDERS: ATTEND Internal Medicine Hematology & Oncology
DX: R79.1 Abnormal coagulation profile (principal); Z86.718 Personal history of other venous thrombosis and embolism; Z86.711 Personal history of pulmonary embolism; Z79.01 Long term (current) use of anticoagulants; Z79.899 Other long term (current) drug therapy
CPT/HCPCS: 36415; 85610

== ENCOUNTER → 2019-09-02 | Outpatient (CLI) | payer BC ==
[2019-09-02 13:44] LABS: WHITE BLOOD COUNT 6.4 10^3/uL (4.3-11.0)
[2019-09-02 13:45] LABS: BASOPHILS % (AUTO) 1 % (0-10); EOSINOPHILS # (AUTO) 0.1 10^3/uL (0.0-0.3); EOSINOPHILS % (AUTO) 1 % (0-10); HEMATOCRIT 35 % (35-52); HEMOGLOBIN 11.2 G/DL (11.5-16.0); LYMPHOCYTES # (AUTO) 1.4 X 10^3 (1.0-4.0); LYMPHOCYTES % (AUTO) 21 % (12-44); MEAN CORPUSCULAR HEMOGLOBIN 25 PG (25-34); MEAN CORPUSCULAR HGB CONC 32 G/DL (32-36); MEAN CORPUSCULAR VOLUME 78 FL (80-99); MEAN PLATELET VOLUME 10.5 FL (7.4-10.4); MONOCYTES # (AUTO) 0.3 X 10^3 (0.0-1.0); MONOCYTES % (AUTO) 4 % (0-12); NEUTROPHILS # (AUTO) 4.7 X 10^3 (1.8-7.8); NEUTROPHILS % (AUTO) 74 % (42-75); PLATELET COUNT 301 10^3/uL (130-400); RED CELL DISTRIBUTION WIDTH 14.9 % (10.0-14.5)
[2019-09-02 13:59] LABS: ALANINE AMINOTRANSFERASE 19 U/L (0-55); ALKALINE PHOSPHATASE 73 U/L (40-136); BILIRUBIN,TOTAL 0.3 MG/DL (0.1-1.0); BUN/CREATININE RATIO 14; CALCIUM 9.1 MG/DL (8.5-10.1); CARBON DIOXIDE 27 MMOL/L (21-32); CHLORIDE 105 MMOL/L (98-107); GFR ESTIMATED > 60; GLUCOSE 91 MG/DL (70-105); POTASSIUM 3.9 MMOL/L (3.6-5.0); SODIUM 139 MMOL/L (135-145)
[2019-09-02 14:00] LABS: ALBUMIN 4.1 GM/DL (3.2-4.5); CHOLESTEROL 208 MG/DL (< 200); HDL CHOLESTEROL 73 MG/DL (40-60); TRIGLYCERIDES 224 MG/DL (<150); VLDL CHOLESTEROL 45 MG/DL (5-40)
== END ==
LOC: LAB 12:54
PROVIDERS: ATTEND Family Medicine
DX: Z01.89 Encounter for other specified special examinations (principal); Z87.448 Personal history of other diseases of urinary system
CPT/HCPCS: 36415; 80053; 80061; 84443; 85025

== ENCOUNTER → 2019-09-02 | Outpatient (CLI) | payer BC ==
[2019-09-02 14:00] LABS: FREE T4 (FREE THYROXINE) 1.37 NG/DL (0.70-1.48)
== END ==
LOC: LAB 13:03
PROVIDERS: ATTEND Internal Medicine Endocrinology, Diabetes & Metabolism
DX: E03.9 Hypothyroidism, unspecified (principal)
CPT/HCPCS: 36415; 84439; 84443

== ENCOUNTER → 2019-10-04 | Outpatient (RCR) | payer BC ==
[2019-07-06 11:51] LABS: INR 2.3 (0.8-1.4); PROTHROMBIN TIME PATIENT 26.1 SEC (12.2-14.7)
[2019-08-03 12:37] LABS: INR 2.4 (0.8-1.4)
[2019-09-02 13:12] LABS: BASOPHILS % (AUTO) 1 % (0-10); EOSINOPHILS # (AUTO) 0.1 10^3/uL (0.0-0.3); EOSINOPHILS % (AUTO) 1 % (0-10); HEMATOCRIT 35 % (35-52); HEMOGLOBIN 11.2 G/DL (11.5-16.0); LYMPHOCYTES # (AUTO) 1.4 X 10^3 (1.0-4.0); LYMPHOCYTES % (AUTO) 21 % (12-44); MEAN CORPUSCULAR HEMOGLOBIN 25 PG (25-34); MEAN CORPUSCULAR HGB CONC 32 G/DL (32-36); MEAN CORPUSCULAR VOLUME 78 FL (80-99); MEAN PLATELET VOLUME 10.5 FL (7.4-10.4); MONOCYTES # (AUTO) 0.3 X 10^3 (0.0-1.0); MONOCYTES % (AUTO) 4 % (0-12); NEUTROPHILS # (AUTO) 4.7 X 10^3 (1.8-7.8); NEUTROPHILS % (AUTO) 74 % (42-75); PLATELET COUNT 301 10^3/uL (130-400); RED CELL DISTRIBUTION WIDTH 14.9 % (10.0-14.5); WHITE BLOOD COUNT 6.4 10^3/uL (4.3-11.0)
[2019-09-02 13:31] LABS: ALANINE AMINOTRANSFERASE 19 U/L (0-55); ALBUMIN 4.1 GM/DL (3.2-4.5); ALKALINE PHOSPHATASE 73 U/L (40-136); BILIRUBIN,TOTAL 0.3 MG/DL (0.1-1.0); BUN/CREATININE RATIO 14; CALCIUM 9.1 MG/DL (8.5-10.1); CARBON DIOXIDE 27 MMOL/L (21-32); CHLORIDE 105 MMOL/L (98-107); GFR ESTIMATED > 60; GLUCOSE 91 MG/DL (70-105); POTASSIUM 3.9 MMOL/L (3.6-5.0); SODIUM 139 MMOL/L (135-145)
[2019-09-02 13:35] LABS: INR 2.4 (0.8-1.4)
[2019-10-04 13:30] LABS: BASOPHILS % (AUTO) 0 % (0-10); EOSINOPHILS # (AUTO) 0.1 10^3/uL (0.0-0.3); EOSINOPHILS % (AUTO) 1 % (0-10); HEMATOCRIT 40 % (35-52); LYMPHOCYTES # (AUTO) 1.3 X 10^3 (1.0-4.0); LYMPHOCYTES % (AUTO) 13 % (12-44); MEAN CORPUSCULAR HEMOGLOBIN 26 PG (25-34); MEAN CORPUSCULAR HGB CONC 32 G/DL (32-36); MEAN CORPUSCULAR VOLUME 81 FL (80-99); MEAN PLATELET VOLUME 10.1 FL (7.4-10.4); MONOCYTES # (AUTO) 0.4 X 10^3 (0.0-1.0); MONOCYTES % (AUTO) 3 % (0-12); NEUTROPHILS # (AUTO) 8.5 X 10^3 (1.8-7.8); NEUTROPHILS % (AUTO) 83 % (42-75); PLATELET COUNT 100 10^3/uL (130-400); RED CELL DISTRIBUTION WIDTH 17.4 % (10.0-14.5); WHITE BLOOD COUNT 10.3 10^3/uL (4.3-11.0)
== END | disposition home or self-care (01) ==
LOC: ONC 07-06 11:20
PROVIDERS: ATTEND Internal Medicine Hematology & Oncology
DX: R79.1 Abnormal coagulation profile (principal); Z86.718 Personal history of other venous thrombosis and embolism; Z86.711 Personal history of pulmonary embolism; Z79.01 Long term (current) use of anticoagulants; Z79.899 Other long term (current) drug therapy
CPT/HCPCS: 80053; 82728; 85025; 85610; 99213

== ENCOUNTER → 2020-01-17 | Outpatient (CLI) | payer BC | LOC: LAB 09:25 | PROVIDERS: ATTEND Nurse Practitioner Family | DX: R07.9 Chest pain, unspecified (principal); Z86.718 Personal history of other venous thrombosis and embolism | CPT/HCPCS: 36415; 85379 ==

== ENCOUNTER → 2020-01-24 | Outpatient (CLI) | payer BC ==
--- NOTE | 2020-01-24 15:25 | Diagnostic Imaging Report ---
Indication: Leg swelling PA and lateral chest Heart size and pulmonary vascularity are normal. Lungs are clear. There are no effusions or pneumothoraces. IMPRESSION: No acute abnormalities in the chest Dictated by: Dictated on workstation # [id number]
--- NOTE | 2020-01-24 15:34 | Diagnostic Imaging Report ---
INDICATION: Leg swelling. TECHNIQUE: Bilateral lower extremity venous Doppler study performed in the routine fashion with color flow Doppler and waveform analysis. FINDINGS: On the right side, the common femoral vein and profunda femoris vein and SFV are patent. There is partial deep vein thrombosis in the right popliteal vein. Visualized portions of the tibial veins on the right side are patent. On the left side, the common femoral vein, profunda femoris vein, and SFV are patent. The popliteal vein and tibial veins are patent. IMPRESSION: Partial deep vein thrombosis involving the right popliteal vein of uncertain chronicity. Remaining vessels are patent. Dictated by: Dictated on workstation # [id number]
== END ==
LOC: RAD 14:36
PROVIDERS: ATTEND Nurse Practitioner Family
DX: I82.431 Acute embolism and thrombosis of right popliteal vein (principal)
CPT/HCPCS: 71046; 93970

== ENCOUNTER → 2020-01-25 | Outpatient (CLI) | payer BC ==
[~2020-01-25] MED LIST changes: +CATHETER FLUSH 10 ML SYR IV PRN; +HOLD METFORMIN - RECEIVED CONTRAST 20 ML VIAL IV SCH; +IOHEXOL 350 MG/ML 100 ML (OMNIPAQUE 350) VIAL IV ONE; +NS 100 ML (IVPB) BAG IV ONE
--- NOTE | 2020-01-25 09:24 | Diagnostic Imaging Report ---
EXAMINATION: CT angiography of the chest. TECHNIQUE: Contrast enhanced thin section helical images were obtained through the chest with intravenous contrast timed for the optimal opacification of the arterial structures per CTA protocol. Post-processing, reconstructions and interpretation of angiographic images of the vessels was performed. 3D MIP reconstructions were performed and reviewed. All CT scans use one or more of the following dose optimizing techniques: automated exposure control, MA and/or KvP adjustment based on a patient size and exam type, or iterative reconstruction. HISTORY: New onset chest and back pain. COMPARISON: CTA chest 07/12/2012. FINDINGS: Vascular: No visualized filling defects within the pulmonary arteries. The distal pulmonary arteries are difficult to evaluate secondary to respiratory motion. Thoracic aorta is normal in caliber. Thyroid: The thyroid is nonvisualized. Mediastinum: Heart size is normal without significant pericardial effusion. No suspicious lymphadenopathy. Lungs and airways: The lungs are clear without consolidation, pleural effusion, or pneumothorax. The airways are normal. Upper abdomen: The subphrenic structures are normal. Musculoskeletal: No suspicious osseous lesion or compression fracture. IMPRESSION: 1. No findings of pulmonary embolus. 2. No other acute abnormality in the chest. Dictated by: Dictated on workstation # [id number]
--- NOTE | 2020-01-25 10:15 | Diagnostic Imaging Report ---
INDICATION: DVT. EXAMINATION: Bilateral upper extremity venous Doppler There are no prior bilateral upper extremity venous Doppler examinations available for comparison. The recent lower extremity venous Doppler exam of 01/24/2020 did note partial thrombosis involving the popliteal vein on the right. On this exam there is generally good blood flow and compressibility at all levels. There is no evidence for deep venous thrombosis. IMPRESSION: 1. There is no evidence for deep venous thrombosis of either upper extremity. Dictated by: Dictated on workstation # [id number]
== END ==
LOC: RAD 08:43
PROVIDERS: ATTEND Nurse Practitioner Family
DX: I82.403 Acute embolism and thrombosis of unspecified deep veins of lower extremity, bilateral (principal)
CPT/HCPCS: 71275; 93970

== ENCOUNTER 2020-02-21 13:24 | Outpatient (RCR) | payer BC ==
[2020-02-01 16:13] LABS: INR 2.9 (0.8-1.4); PROTHROMBIN TIME PATIENT 30.3 SEC (12.2-14.7)
[2020-02-08 10:39] LABS: INR 5.5 (0.8-1.4); PROTHROMBIN TIME PATIENT 49.7 SEC (12.2-14.7)
[2020-02-15 09:47] LABS: INR 2.7 (0.8-1.4); PROTHROMBIN TIME PATIENT 29.2 SEC (12.2-14.7)
[~2020-02-21 13:24] MED LIST changes: -CATHETER FLUSH 10 ML SYR IV PRN; -HOLD METFORMIN - RECEIVED CONTRAST 20 ML VIAL IV SCH; -IOHEXOL 350 MG/ML 100 ML (OMNIPAQUE 350) VIAL IV ONE; -NS 100 ML (IVPB) BAG IV ONE
[2020-02-21 13:55] LABS: INR 3.3 (0.8-1.4); PROTHROMBIN TIME PATIENT 34.1 SEC (12.2-14.7)
== END 2020-03-13 15:09 | disposition home or self-care (01) ==
LOC: ONC 13:24
PROVIDERS: ATTEND Internal Medicine Hematology & Oncology
DX: I26.99 Other pulmonary embolism without acute cor pulmonale (principal); R79.1 Abnormal coagulation profile; Z86.711 Personal history of pulmonary embolism; Z79.01 Long term (current) use of anticoagulants; Z79.899 Other long term (current) drug therapy; Z86.718 Personal history of other venous thrombosis and embolism
CPT/HCPCS: 85610

== ENCOUNTER → 2020-03-21 | Outpatient (CLI) | payer BC ==
[2020-03-21 10:23] LABS: FREE T4 (FREE THYROXINE) 1.41 NG/DL (0.70-1.48)
== END ==
LOC: LAB 09:29
PROVIDERS: ATTEND Internal Medicine Endocrinology, Diabetes & Metabolism
DX: E03.9 Hypothyroidism, unspecified (principal); Z86.39 Personal history of other endocrine, nutritional and metabolic disease; Z86.711 Personal history of pulmonary embolism
CPT/HCPCS: 36415; 84439; 84443

== ENCOUNTER → 2020-03-28 | Outpatient (CLI) | payer BC ==
[2020-03-28 09:14] LABS: BASOPHILS % (AUTO) 1 % (0-10); EOSINOPHILS # (AUTO) 0.1 10^3/uL (0.0-0.3); EOSINOPHILS % (AUTO) 1 % (0-10); HEMATOCRIT 39 % (35-52); HEMOGLOBIN 12.4 g/dL (11.5-16.0); LYMPHOCYTES # (AUTO) 1.3 10^3/uL (1.0-4.0); LYMPHOCYTES % (AUTO) 22 % (12-44); MEAN CORPUSCULAR HEMOGLOBIN 28 pg (25-34); MEAN CORPUSCULAR HGB CONC 32 g/dL (32-36); MEAN CORPUSCULAR VOLUME 87 fL (80-99); MONOCYTES # (AUTO) 0.3 10^3/uL (0.0-1.0); MONOCYTES % (AUTO) 5 % (0-12); NEUTROPHILS # (AUTO) 4.2 10^3/uL (1.8-7.8); NEUTROPHILS % (AUTO) 71 % (42-75); PLATELET COUNT 292 10^3/uL (130-400); WHITE BLOOD COUNT 5.8 10^3/uL (4.3-11.0)
[2020-03-28 09:42] LABS: ALANINE AMINOTRANSFERASE 12 U/L (0-55); ALBUMIN 3.9 GM/DL (3.2-4.5); ALKALINE PHOSPHATASE 73 U/L (40-136); BILIRUBIN,TOTAL 0.2 MG/DL (0.1-1.0); BUN/CREATININE RATIO 19; CALCIUM 8.9 MG/DL (8.5-10.1); CARBON DIOXIDE 24 MMOL/L (21-32); CHLORIDE 107 MMOL/L (98-107); CHOLESTEROL 240 MG/DL (< 200); CREATININE SERUM 0.83 MG/DL (0.60-1.30); GFR ESTIMATED > 60; GLUCOSE 85 MG/DL (70-105); HDL CHOLESTEROL 77 MG/DL (40-60); POTASSIUM 4.1 MMOL/L (3.6-5.0); SODIUM 139 MMOL/L (135-145); TOTAL PROTEIN 7.1 GM/DL (6.4-8.2); TRIGLYCERIDES 201 MG/DL (<150); VLDL CHOLESTEROL 40 MG/DL (5-40)
== END ==
LOC: LAB 08:55
PROVIDERS: ATTEND Family Medicine
DX: Z00.00 Encounter for general adult medical examination without abnormal findings (principal)
CPT/HCPCS: 36415; 80053; 80061; 85025

== ENCOUNTER 2020-06-07 09:18 | Outpatient (RCR) | payer BC ==
[2020-03-14 11:32] LABS: INR 2.8 (0.8-1.4); PROTHROMBIN TIME PATIENT 29.9 SEC (12.2-14.7)
[2020-03-21 09:57] LABS: INR 3.2 (0.8-1.4); PROTHROMBIN TIME PATIENT 32.7 SEC (12.2-14.7)
[2020-03-28 09:33] LABS: INR 2.6 (0.8-1.4); PROTHROMBIN TIME PATIENT 28.5 SEC (12.2-14.7)
[2020-04-04 15:04] LABS: INR 2.2 (0.8-1.4); PROTHROMBIN TIME PATIENT 24.5 SEC (12.2-14.7)
[2020-04-11 14:04] LABS: INR 2.5 (0.8-1.4); PROTHROMBIN TIME PATIENT 27.1 SEC (12.2-14.7)
[2020-04-18 10:51] LABS: INR 2.1 (0.8-1.4); PROTHROMBIN TIME PATIENT 24.1 SEC (12.2-14.7)
[2020-04-25 12:09] LABS: INR 2.2 (0.8-1.4); PROTHROMBIN TIME PATIENT 24.9 SEC (12.2-14.7)
[2020-05-10 09:04] LABS: INR 2.2 (0.8-1.4); PROTHROMBIN TIME PATIENT 24.4 SEC (12.2-14.7)
[2020-05-24 12:21] LABS: INR 2.2 (0.8-1.4); PROTHROMBIN TIME PATIENT 24.4 SEC (12.2-14.7)
[2020-06-07 09:41] LABS: INR 2.1 (0.8-1.4); PROTHROMBIN TIME PATIENT 23.6 SEC (12.2-14.7)
== END 2020-06-12 | disposition home or self-care (01) ==
LOC: ONC 09:18
PROVIDERS: ATTEND Internal Medicine Hematology & Oncology
DX: I82.409 Acute embolism and thrombosis of unspecified deep veins of unspecified lower extremity (principal); I26.99 Other pulmonary embolism without acute cor pulmonale; R79.1 Abnormal coagulation profile; Z86.711 Personal history of pulmonary embolism; Z79.01 Long term (current) use of anticoagulants; Z79.899 Other long term (current) drug therapy; Z86.718 Personal history of other venous thrombosis and embolism; Z92.29 Personal history of other drug therapy
CPT/HCPCS: 36415; 80053; 80061; 85025; 85610

== ENCOUNTER 2020-08-31 10:27 | Outpatient (RCR) | payer BC ==
[2020-06-14 14:06] LABS: INR 2.2 (0.8-1.4); PROTHROMBIN TIME PATIENT 24.9 SEC (12.2-14.7)
[2020-06-21 11:28] LABS: INR 2.2 (0.8-1.4); PROTHROMBIN TIME PATIENT 24.4 SEC (12.2-14.7)
[2020-06-28 09:59] LABS: INR 2.5 (0.8-1.4); PROTHROMBIN TIME PATIENT 27.5 SEC (12.2-14.7)
[2020-07-12 09:27] LABS: INR 2.5 (0.8-1.4); PROTHROMBIN TIME PATIENT 26.9 SEC (12.2-14.7)
[2020-07-26 10:30] LABS: INR 2.4 (0.8-1.4); PROTHROMBIN TIME PATIENT 26.1 SEC (12.2-14.7)
[2020-08-09 09:57] LABS: INR 2.8 (0.8-1.4)
[2020-08-16 11:28] LABS: INR 2.2 (0.8-1.4); PROTHROMBIN TIME PATIENT 25.1 SEC (12.2-14.7)
[2020-08-31 10:47] LABS: BASOPHILS % (AUTO) 1 % (0-10); EOSINOPHILS # (AUTO) 0.1 10^3/uL (0.0-0.3); EOSINOPHILS % (AUTO) 1 % (0-10); HEMATOCRIT 39 % (35-52); HEMOGLOBIN 12.2 g/dL (11.5-16.0); LYMPHOCYTES # (AUTO) 1.2 10^3/uL (1.0-4.0); LYMPHOCYTES % (AUTO) 24 % (12-44); MEAN CORPUSCULAR HEMOGLOBIN 26 pg (25-34); MEAN CORPUSCULAR HGB CONC 32 g/dL (32-36); MEAN CORPUSCULAR VOLUME 83 fL (80-99); MEAN PLATELET VOLUME 10.2 fL (9.0-12.2); MONOCYTES # (AUTO) 0.2 10^3/uL (0.0-1.0); MONOCYTES % (AUTO) 5 % (0-12); NEUTROPHILS # (AUTO) 3.4 10^3/uL (1.8-7.8); NEUTROPHILS % (AUTO) 68 % (42-75); PLATELET COUNT 309 10^3/uL (130-400); WHITE BLOOD COUNT 4.9 10^3/uL (4.3-11.0)
[2020-08-31 11:05] LABS: INR 2.3 (0.8-1.4); PROTHROMBIN TIME PATIENT 25.2 SEC (12.2-14.7)
[2020-08-31 11:15] LABS: ALANINE AMINOTRANSFERASE 17 U/L (0-55); ALBUMIN 4.1 GM/DL (3.2-4.5); ALKALINE PHOSPHATASE 82 U/L (40-136); BILIRUBIN,TOTAL 0.4 MG/DL (0.1-1.0); BUN/CREATININE RATIO 16; CALCIUM 9.2 MG/DL (8.5-10.1); CARBON DIOXIDE 22 MMOL/L (21-32); CHLORIDE 106 MMOL/L (98-107); CREATININE SERUM 0.81 MG/DL (0.60-1.30); GFR ESTIMATED > 60; GLUCOSE 93 MG/DL (70-105); SODIUM 137 MMOL/L (135-145); TOTAL PROTEIN 7.7 GM/DL (6.4-8.2)
== END 2020-09-12 | disposition home or self-care (01) ==
LOC: ONC 10:27
PROVIDERS: ATTEND Internal Medicine Hematology & Oncology
DX: I82.409 Acute embolism and thrombosis of unspecified deep veins of unspecified lower extremity (principal); I26.99 Other pulmonary embolism without acute cor pulmonale; R79.1 Abnormal coagulation profile; Z86.711 Personal history of pulmonary embolism; Z79.01 Long term (current) use of anticoagulants; Z79.899 Other long term (current) drug therapy; Z86.718 Personal history of other venous thrombosis and embolism; Z92.29 Personal history of other drug therapy
CPT/HCPCS: 80053; 82728; 85025; 85610; 99213

== ENCOUNTER → 2020-08-31 | Outpatient (CLI) | payer BC ==
[2020-08-31 11:53] LABS: CHOLESTEROL 229 MG/DL (< 200); HDL CHOLESTEROL 70 MG/DL (40-60); TRIGLYCERIDES 150 MG/DL (<150); VLDL CHOLESTEROL 30 MG/DL (5-40)
== END ==
LOC: ONC 10:31
PROVIDERS: ATTEND Nurse Practitioner Family
DX: D68.59 Other primary thrombophilia (principal); I82.409 Acute embolism and thrombosis of unspecified deep veins of unspecified lower extremity; I26.99 Other pulmonary embolism without acute cor pulmonale; E66.01 Morbid (severe) obesity due to excess calories; Z79.01 Long term (current) use of anticoagulants
CPT/HCPCS: 80061

== ENCOUNTER 2020-12-20 16:10 | Outpatient (RCR) | payer BC ==
[2020-09-27 13:32] LABS: INR 2.6 (0.8-1.4); PROTHROMBIN TIME PATIENT 27.8 SEC (12.2-14.7)
[2020-10-25 11:43] LABS: INR 2.5 (0.8-1.4); PROTHROMBIN TIME PATIENT 27.6 SEC (12.2-14.7)
[2020-11-22 11:13] LABS: INR 2.3 (0.8-1.4); PROTHROMBIN TIME PATIENT 25.8 SEC (12.2-14.7)
[2020-12-20 16:29] LABS: INR 2.6 (0.8-1.4); PROTHROMBIN TIME PATIENT 28.1 SEC (12.2-14.7)
== END 2020-12-26 | disposition home or self-care (01) ==
LOC: ONC 16:10
PROVIDERS: ATTEND Internal Medicine Hematology & Oncology
DX: I82.409 Acute embolism and thrombosis of unspecified deep veins of unspecified lower extremity (principal); E05.90 Thyrotoxicosis, unspecified without thyrotoxic crisis or storm; D68.59 Other primary thrombophilia; I26.99 Other pulmonary embolism without acute cor pulmonale; E66.9 Obesity, unspecified; Z86.711 Personal history of pulmonary embolism; Z79.01 Long term (current) use of anticoagulants; Z79.899 Other long term (current) drug therapy; Z86.718 Personal history of other venous thrombosis and embolism; Z92.29 Personal history of other drug therapy
CPT/HCPCS: 85610

== ENCOUNTER 2021-02-28 15:48 | Outpatient (RCR) | payer BC ==
[2021-01-17 09:35] LABS: PROTHROMBIN TIME PATIENT 23.4 SEC (12.2-14.7)
[2021-01-30 11:25] LABS: INR 2.2 (0.8-1.4); PROTHROMBIN TIME PATIENT 24.8 SEC (12.2-14.7)
[2021-02-15 09:04] LABS: INR 1.8 (0.8-1.4); PROTHROMBIN TIME PATIENT 21.6 SEC (12.2-14.7)
[2021-02-28 16:13] LABS: PROTHROMBIN TIME PATIENT 31.5 SEC (12.2-14.7)
== END 2021-03-09 | disposition home or self-care (01) ==
LOC: ONC 15:48
PROVIDERS: ATTEND Internal Medicine Hematology & Oncology
DX: I82.409 Acute embolism and thrombosis of unspecified deep veins of unspecified lower extremity (principal); E66.9 Obesity, unspecified; Z79.01 Long term (current) use of anticoagulants; Z92.29 Personal history of other drug therapy
CPT/HCPCS: 85610

== ENCOUNTER → 2021-02-28 | Outpatient (CLI) | payer BC ==
[2021-02-28 16:38] LABS: FREE T4 (FREE THYROXINE) 1.31 NG/DL (0.70-1.48)
== END ==
LOC: LAB 15:50
PROVIDERS: ATTEND Internal Medicine Endocrinology, Diabetes & Metabolism
DX: E05.00 Thyrotoxicosis with diffuse goiter without thyrotoxic crisis or storm (principal); N25.81 Secondary hyperparathyroidism of renal origin
CPT/HCPCS: 36415; 82306; 84439; 84443

== ENCOUNTER 2021-03-28 08:20 | Outpatient (RCR) | payer BC ==
[2021-03-14 12:07] LABS: INR 2.5 (0.8-1.4); PROTHROMBIN TIME PATIENT 27.8 SEC (12.2-14.7)
[2021-03-28 08:47] LABS: INR 2.1 (0.8-1.4); PROTHROMBIN TIME PATIENT 24.2 SEC (12.2-14.7)
== END 2021-04-09 | disposition home or self-care (01) ==
LOC: ONC 08:20
PROVIDERS: ATTEND Internal Medicine Hematology & Oncology
DX: I82.409 Acute embolism and thrombosis of unspecified deep veins of unspecified lower extremity (principal); E66.9 Obesity, unspecified; Z92.29 Personal history of other drug therapy
CPT/HCPCS: 85610

== ENCOUNTER → 2021-09-17 | Outpatient (CLI) | payer BC ==
--- NOTE | 2021-09-17 10:55 | Diagnostic Imaging Report ---
INDICATION: Routine screening. COMPARISON: No prior mammograms are available for comparison. This is a baseline study. TECHNIQUE: 2D and 3D bilateral screening mammography was performed with CAD. FINDINGS: Scattered fibroglandular densities are identified bilaterally. No mass or malignant-appearing microcalcifications are seen. The axillae are unremarkable. IMPRESSION: No mammographic features suspicious for malignancy are identified. ACR BI-RADS Category 1: Negative. Result letter will be mailed to the patient. Note: At least 10% of breast cancer is not imaged by mammography. Dictated by: Dictated on workstation # [id number]
== END ==
LOC: RAD 09:23
PROVIDERS: ATTEND Family Medicine
DX: Z12.31 Encounter for screening mammogram for malignant neoplasm of breast (principal)
CPT/HCPCS: 77063; 77067

== ENCOUNTER → 2022-08-02 | Outpatient (CLI) | payer BC ==
--- NOTE | 2022-08-02 13:42 | Diagnostic Imaging Report ---
PROCEDURE: Pelvic comp/transvaginal sonogram. TECHNIQUE: Complete transabdominal and transvaginal pelvic ultrasound was performed. In addition, limited pelvic Doppler was performed. INDICATION: Abnormal uterine bleeding. Uterus is retroverted measuring 7.7 x 4.3 x 5.3 cm. Endometrium is 6 mm in thickness. There is an area of heterogeneity noted within the uterus approximately 3.8 x 3.2 cm in size, possibly a fibroid. Right ovary measures 2.7 x 1.6 x 1.9 cm and the left ovary measures 2.8 x 1.9 x 1.6 cm. There is blood flow to the ovaries. No adnexal mass or free fluid is detected. IMPRESSION: Probable uterine fibroid. This study is otherwise unremarkable. Dictated by: Dictated on workstation # [id number]
== END ==
LOC: RAD 12:00
PROVIDERS: ATTEND Obstetrics & Gynecology
DX: N93.9 Abnormal uterine and vaginal bleeding, unspecified (principal); D50.0 Iron deficiency anemia secondary to blood loss (chronic); Z79.01 Long term (current) use of anticoagulants
CPT/HCPCS: 76830; 76856

== ENCOUNTER → 2022-09-18 | Outpatient (CLI) | payer BC ==
--- NOTE | 2022-09-18 11:56 | Diagnostic Imaging Report ---
Indication: Routine screening. Comparison is made with prior mammogram from 09/17/2021. 2-D and 3-D bilateral screening mammography was performed with CAD. The current study was also evaluated with a Computer Aided Detection (CAD) system. Scattered fibroglandular densities are identified bilaterally. The parenchymal pattern is stable. No mass or malignant-appearing microcalcifications are seen. Axillae are unremarkable. IMPRESSION: BI-RADS Category 1 No mammographic features suspicious for malignancy are identified. ACR BI-RADS Category 1: Negative. Result letter will be mailed to the patient. Note: At least 10% of breast cancer is not imaged by mammography. Dictated by: Dictated on workstation # [id number]
== END ==
LOC: RAD 09:48
PROVIDERS: ATTEND Family Medicine
DX: Z12.31 Encounter for screening mammogram for malignant neoplasm of breast (principal)
CPT/HCPCS: 77063; 77067

== ENCOUNTER 2023-02-16 16:53 | Emergency (ER) | payer BC ==
[~2023-02-16] VITALS: Ht 154.9 cm; Wt 86.0 kg
[2023-02-16 17:48] LABS: BASOPHILS # (AUTO) 0.1 10^3/uL (0.0-0.1); BASOPHILS % (AUTO) 1 % (0-10); EOSINOPHILS # (AUTO) 0.2 10^3/uL (0.0-0.3); EOSINOPHILS % (AUTO) 2 % (0-10); HEMATOCRIT 40 % (35-52); HEMOGLOBIN 13.1 g/dL (11.5-16.0); LYMPHOCYTES # (AUTO) 1.9 10^3/uL (1.0-4.0); LYMPHOCYTES % (AUTO) 20 % (12-44); MEAN CORPUSCULAR HEMOGLOBIN 29 pg (25-34); MEAN CORPUSCULAR HGB CONC 33 g/dL (32-36); MEAN CORPUSCULAR VOLUME 87 fL (80-99); MEAN PLATELET VOLUME 10.3 fL (9.0-12.2); MONOCYTES # (AUTO) 0.4 10^3/uL (0.0-1.0); MONOCYTES % (AUTO) 5 % (0-12); NEUTROPHILS # (AUTO) 7.2 10^3/uL (1.8-7.8); NEUTROPHILS % (AUTO) 73 % (42-75); PLATELET COUNT 354 10^3/uL (130-400); WHITE BLOOD COUNT 9.8 10^3/uL (4.3-11.0)
--- NOTE | 2023-02-16 18:03 | Diagnostic Imaging Report ---
INDICATION: Rib pain. EXAMINATION: Three views were obtained. FINDINGS: Heart size is normal. Left lung is clear. There is no pleural effusion or pneumothorax. There is no displaced rib fracture. IMPRESSION: No displaced rib fracture. Dictated by: Dictated on workstation # [id number]
--- NOTE | 2023-02-16 18:04 | ED Chest Pain ---
General Chief Complaint: Chest Wall Stated Complaint: SHARP SIDE PAIN Source: patient Exam Limitations: no limitations History of Present Illness Date Seen by Provider: Feb 16, 2023 Time Seen by Provider: 17:30 Allergies and Home Medications Allergies Coded Allergies: Sulfa (Sulfonamide Antibiotics) (Unverified Allergy, Unknown, 03/01/10) codeine (Unverified Allergy, Unknown, 12/03/09) doxycycline (Verified Allergy, Unknown, 12/21/09) Patient Home Medication List Alprazolam (Alprazolam) 0.25 Mg Tab.rapdis, 1 EACH PO HS, (Reported) Entered as Reported by: KWAME SHAH on 07/23/12 2322 Aspirin (Aspirin 81 Mg Chew Tab) 81 Mg Chew, 325 MG PO DAILY, (Reported) Entered as Reported by: DAVID GUEVARA on 02/28/10 1004 Cholecalciferol (Vitamin D3) (Vitamin D3) 2,000 Unit Capsule, 2,000 UNIT PO, (Reported) Entered as Reported by: MAYTE YOUNGBLOOD on 07/12/12 0549 Levothyroxine Sodium (Synthroid) 137 Mcg Tablet, 1 EACH PO DAILY, (Reported) Entered as Reported by: MAYTE YOUNGBLOOD on 07/12/12 0549 Warfarin Sodium (Coumadin) 10 Mg Tablet, 10 MG PO DAILY@1800 Prescribed by: SHARI CONRAD on 07/17/12 0934 Past [id number]-Qwggph Hx Past Medical History Reproductive Disorders: No Renal Failure Hypothyroidsim Sleep Difficulties, Anxiety Family Medical History No Pertinent Family Hx Physical Exam Vital Signs Capillary Refill : Height, Weight, BMI Height: '" Weight: lbs. oz. kg; BMI Method:Stated Progress/Results/Core Measures Results/Orders Lab Results Laboratory Tests Test 02/16/23 17:21 Range/Units White Blood Count 9.8 4.3-11.0 10^3/uL Red Blood Count 4.59 3.80-5.11 10^6/uL Hemoglobin 13.1 11.5-16.0 g/dL Hematocrit 40 35-52 % Mean Corpuscular Volume 87 80-99 fL Mean Corpuscular Hemoglobin 29 25-34 pg Mean Corpuscular Hemoglobin Concent 33 32-36 g/dL Red Cell Distribution Width 13.3 10.0-14.5 % Platelet Count 354 130-400 10^3/uL Mean Platelet Volume 10.3 9.0-12.2 fL Immature Granulocyte % (Auto) 0 % Neutrophils (%) (Auto) 73 42-75 % Lymphocytes (%) (Auto) 20 12-44 % Monocytes (%) (Auto) 5 0-12 % Eosinophils (%) (Auto) 2 0-10 % Basophils (%) (Auto) 1 0-10 % Neutrophils # (Auto) 7.2 1.8-7.8 10^3/uL Lymphocytes # (Auto) 1.9 1.0-4.0 10^3/uL Monocytes # (Auto) 0.4 0.0-1.0 10^3/uL Eosinophils # (Auto) 0.2 0.0-0.3 10^3/uL Basophils # (Auto) 0.1 0.0-0.1 10^3/uL Immature Granulocyte # (Auto) 0.0 0.0-0.1 10^3/uL Prothrombin Time 22.8 H 12.2-14.7 SEC INR Comment 1.9 H 0.8-1.4 D-Dimer 0.28 0.00-0.49 UG/ML My Orders Orders - ALYSSA QUIÑONES MD Cbc And Automated Diff (02/16/23 17:42) Fibrin Degradation Products (02/16/23 17:42) Protime With Inr (02/16/23 17:42) Ribs, Left 2-3 Views (02/16/23 17:42) Ed Iv/Invasive Line Start (02/16/23 17:42) Methylprednisolone Sod Succ (Methylpredn (02/16/23 19:30) Medications Given in ED Current Medications Medications Dose Ordered Sig/[place] Route Start Time Stop Time Status Last Admin Dose Admin Methylprednisolone Sodium Succinate 125 mg ONCE ONCE IVP 02/16/23 19:30 02/16/23 19:31 DC 02/16/23 19:32 125 MG Departure Impression Primary Impression: Chest wall pain Disposition: 01 HOME, SELF-CARE Condition: Stable Departure-Patient Inst. Decision time for Depature: 19:22 Referrals: SHARI CONRAD MD (PCP/Family) Primary Care Physician Patient Instructions: Chest Pain That Is Not Caused by the Heart (DC), Costochondritis Add. Discharge Instructions: Your chest and rib x-rays were normal in the ER today. Your INR was near therapeutic at 1.9. Your cell counts and hemoglobin were normal. Your D-dimer test was normal indicating it is highly unlikely that you have a blood clot. You may continue taking Tylenol (acetaminophen) up to 1000 mg every 6 hours as needed for pain. You may also try topical treatments such as lidocaine rubs or patches placed directly over the area of greatest pain. Use prednisone as prescribed. Take early in the day to avoid sleep disturbance and take with food or milk to avoid upset stomach. Return to care if you have worsening symptoms despite following these instructions. The exact cause of your pain is uncertain but the nature of your pain seems to be musculoskeletal. Costochondritis caused by your recent coughing and sneezing is a likely diagnosis. All discharge instructions reviewed with patient and/or family. Voiced understanding. Scripts Prednisone (Prednisone) 20 Mg Tab 20 MG PO DAILY, #3 TAB 0 Refills Prov: ALYSSA QUIÑONES MD 02/16/23 Copy Copies To 1: SHARI CONRAD MD, JOSHUA T MD Feb 16, 2023 6:04 pm
[2023-02-16 18:24] LABS: INR 1.9 (0.8-1.4); PROTHROMBIN TIME PATIENT 22.8 SEC (12.2-14.7)
[2023-02-16 18:57] LABS: FIBRIN DEGRADATION PRODUCTS 0.28 UG/ML (0.00-0.49)
[2023-02-16] MEDS ORDERED: methylPREDNISolone INJ 125 MG VIAL IVP ONE (19:30)
[2023-02-16] MEDS ORDERED: PRD20T PO (19:53)
[2023-02-16 19:54] VITALS: BP 101/60
== END 2023-02-16 19:55 | disposition home or self-care (01) ==
LOC: EDUNIT# 16:53 → ER 16:54
DX: R07.89 Other chest pain (principal)
CPT/HCPCS: 36415; 71100; 85025; 85379; 85610